=== PATIENT | female | born 1995 | race Two or more races ===

== ENCOUNTER 2017-03-15 11:04 | Emergency (ER) | payer MEDICAID ==
[~2017-03-15] VITALS: Ht 162.6 cm; Wt 75.0 kg
[2017-03-15 11:10] VITALS: BP 106/82
[2017-03-15] MEDS ORDERED: ACETAMINOPHEN 500MG TABLET PO ONE (12:00)
== END 2017-03-15 12:18 | disposition home or self-care (01) ==
LOC: ER 12:17
DX: K64.4 Residual hemorrhoidal skin tags (principal)
CPT/HCPCS: 99283

== ENCOUNTER 2018-05-28 10:21 | Emergency (ER) | payer MEDICAID ==
[~2018-05-28] VITALS: Ht 154.9 cm; Wt 57.0 kg
[2018-05-28] MEDS ORDERED: ACETAMINOPHEN 325MG TABLET PO STA (10:55)
[2018-05-28] MEDS ORDERED: ONDANSETRON 4MG ODT PO STA (10:55)
[2018-05-28 11:07] LABS: CLARITY URINE CLEAR (CLEAR); COLOR URINE YELLOW (YELLOW); KETONES URINE TRACE (NEGATIVE); LEUKOCYTE ESTERASE URINE NEGATIVE (NEGATIVE); NITRITE URINE NEGATIVE (NEGATIVE); OCCULT BLOOD URINE NEGATIVE (NEGATIVE); PROTEIN URINE TRACE (NEGATIVE); SPECIFIC GRAVITY URINE 1.033 (1.005-1.030)
[2018-05-28] MEDS ORDERED: IBUPROFEN 600MG TABLET PO NR (12:00)
[2018-05-28 12:02] VITALS: BP 130/82
== END 2018-05-28 12:08 | disposition home or self-care (01) ==
LOC: ER 10:21
DX: R11.2 Nausea with vomiting, unspecified (principal); R51 Headache; R50.9 Fever, unspecified
CPT/HCPCS: 81003; 81025; 99283; Q0162

== ENCOUNTER 2018-12-09 08:40 | Emergency (ER) | payer MEDICAID ==
[~2018-12-09] VITALS: Ht 154.9 cm; Wt 59.0 kg
[2018-12-09 11:30] VITALS: BP 130/97
[2018-12-09] MEDS ORDERED: ACETAMINOPHEN WITH CODEINE 300/30MG TABLET PO ONE (12:45)
== END 2018-12-09 12:45 | disposition home or self-care (01) ==
LOC: ER 08:40
DX: M25.561 Pain in right knee (principal); B99.9 Unspecified infectious disease; H10.89 Other conjunctivitis; Z98.890 Other specified postprocedural states
CPT/HCPCS: 73562; 99283; L1830

== ENCOUNTER 2019-03-09 20:14 | Emergency (ER) | payer MEDICAID ==
[~2019-03-09] VITALS: Ht 154.9 cm; Wt 64.0 kg
[2019-03-09 23:57] VITALS: BP 125/73
== END 2019-03-09 23:57 | disposition home or self-care (01) ==
LOC: ER 20:14
DX: J06.9 Acute upper respiratory infection, unspecified (principal); J02.9 Acute pharyngitis, unspecified; Z98.890 Other specified postprocedural states
CPT/HCPCS: 71045; 81025; 87070; 87430; 99284

== ENCOUNTER 2019-05-24 10:20 | Emergency (ER) | payer MEDICAID ==
[~2019-05-24] VITALS: Ht 154.9 cm; Wt 63.0 kg
[2019-05-24] MEDS ORDERED: ACETAMINOPHEN WITH CODEINE 300/30MG TABLET PO ONE (11:45)
[2019-05-24 11:55] VITALS: BP 130/95
== END 2019-05-24 15:27 | disposition home or self-care (01) ==
LOC: ER 15:14
DX: H66.91 Otitis media, unspecified, right ear (principal); F17.200 Nicotine dependence, unspecified, uncomplicated
CPT/HCPCS: 99283

== ENCOUNTER 2020-04-08 09:18 | Emergency (ER) | payer MEDICAID ==
[~2020-04-08] VITALS: Ht 154.9 cm; Wt 65.0 kg
[2020-04-08 10:15] VITALS: BP 134/83
[2020-04-08] MEDS ORDERED: HYDROCODONE/ACETAMINOPHEN 5/325MG TABLET PO ONE (10:15)
[2020-04-08] MEDS ORDERED: ONDANSETRON 4MG ODT PO ONE (10:15)
== END 2020-04-08 13:44 | disposition home or self-care (01) ==
LOC: ER 09:18
DX: S00.83XA Contusion of other part of head, initial encounter (principal); S70.01XA Contusion of right hip, initial encounter; S50.01XA Contusion of right elbow, initial encounter; V43.52XA Car driver injured in collision with other type car in traffic accident, initial encounter; Y93.89 Activity, other specified; Y92.410 Unspecified street and highway as the place of occurrence of the external cause
CPT/HCPCS: 70486; 73080; 73502; 81025; 99284; Q0162

== ENCOUNTER 2020-06-02 13:33 | Emergency (ER) | payer MEDICAID ==
[~2020-06-02] VITALS: Ht 154.9 cm; Wt 75.0 kg
[2020-06-02 13:38] VITALS: BP 138/91
[2020-06-02] MEDS ORDERED: SODIUM CHLORIDE 0.9% 1,000 ML IV ONE (14:15)
== END 2020-06-02 16:18 | disposition left against medical advice (07) ==
LOC: ER 13:43
DX: T40.7X1A Poisoning by cannabis (derivatives), accidental (unintentional), initial encounter (principal); Y92.9 Unspecified place or not applicable
CPT/HCPCS: 93005; 99283; J7030

== ENCOUNTER 2022-02-08 10:52 | Emergency (ER) | payer MEDICAID ==
[~2022-02-08] VITALS: Ht 160 cm; Wt 59.0 kg
[2022-02-08 10:56] VITALS: BP 133/89
[2022-02-08] MEDS ORDERED: LIDOCAINE HCL 2% JELLY 5ML TOP ONE (13:15)
[2022-02-08] MEDS ORDERED: LIDO5JEL8 TP (13:26)
[2022-02-08] MEDS ORDERED: HYDR453.3 TP (13:30)
== END 2022-02-08 14:04 | disposition home or self-care (01) ==
LOC: ER 10:52
DX: K64.9 Unspecified hemorrhoids (principal); Z98.890 Other specified postprocedural states
CPT/HCPCS: 99282